=== PATIENT | female | born 1950 ===

== ENCOUNTER 2020-06-25 11:31 | Outpatient (REF) | payer MEDICARE, SELFPAY ==
[2020-06-25 12:08] LABS: MANUAL DIFF FLAG NO
[2020-06-25 12:11] LABS: Basophils Absolute Auto 0.1 X10*3/uL (0.0-0.2); Basophils Percent Auto 0.9 % (0-2); Eosinophils Absolute Auto 0.3 X10*3/uL (0.0-0.4); Eosinophils Percent Auto 3.8 % (0-4); Hematocrit 45.1 % (37-47); Hemoglobin 14.5 g/dl (12.0-16.0); Imm Gran Abs Auto 0.02 X10*3/uL (0.00-0.03); Imm Gran Pct Auto 0.3 % (0.0-0.4); Lymphocytes Absolute Auto 2.2 X10*3/uL (1.2-4.9); Lymphocytes Percent Auto 32.9 % (20-40); Mean Corpuscular HGB Conc 32.2 g/dl (31.0-35.0); Mean Corpuscular Hemoglobin 28.8 pg (27.0-33.0); Mean Corpuscular Volume 89.5 fL (80-98); Mean Platelet Volume 9.3 fL (9.4-12.3); Monocytes Absolute Auto 0.6 X10*3/uL (0.1-1.2); Neutrophils Absolute Auto 3.6 X10*3/uL (2.0-8.3); Neutrophils Percent Auto 53.1 % (45-73); Platelet Count 294 X10*3/uL (160-400); Red Blood Count 5.04 X10*6/uL (4.20-5.50); Red Cell Distribution Width 11.9 % (11.0-16.0); White Blood Count 6.8 X10*3/uL (4.8-10.8)
[2020-06-25 13:24] LABS: Thyroid Stimulating Hormone 0.59 uIU/mL (0.32-4.0)
[2020-06-25 13:45] LABS: Alanine Aminotransferase 37 U/L (0-31); Alkaline Phosphatase 120 U/L (39-117); Anion Gap 14 (12-20); Aspartate Amino Transferase 34 U/L (5-31); Bilirubin Total 1.1 mg/dL (0.0-1.0); Blood Urea Nitrogen 9 mg/dL (9-16); Calcium 9.2 mg/dL (8.4-10.2); Carbon Dioxide 28 mmol/L (22-29); Chloride 101 mmol/L (96-108); Cholesterol 208 mg/dL; Estimated Glomerular Filt Rate > 60; Glucose Random 115 mg/dL (60-115); HDL Cholesterol 82 mg/dL; LDL Cholesterol Calculated 106 mg/dl; Potassium 4.5 mmol/l (3.3-5.1); Sodium 138 mmol/L (135-145); Total Protein 7.7 g/dL (6.5-8.0); Triglycerides 102 mg/dL
== END 2020-06-25 11:32 | disposition home or self-care (01) ==
LOC: HO.LAB 11:31
PROVIDERS: PCP Internal Medicine; Visit Provider Internal Medicine
DX: E66.01 Morbid (severe) obesity due to excess calories (principal); I10 Essential (primary) hypertension; Z13.31 Encounter for screening for depression; Z00.00 Encounter for general adult medical examination without abnormal findings
CPT/HCPCS: 36415; 80053; 80061; 84443; 85025

== ENCOUNTER 2023-06-08 15:13 | Inpatient (IN) | payer MEDICARE, SELFPAY ==
--- NOTE | ~2023-06-08 | US_ITS ---
EXAMINATION: US EXTRACRANIAL CAROTID DUPLEX, BILATERAL CLINICAL INFORMATION: Possible stroke COMPARISON: None available. TECHNIQUE: Real-time ultrasound and Doppler techniques (integrating B-mode 2-D vascular images, Doppler spectral analysis and color-flow Doppler imaging) were utilized to interrogate the extracranial carotid arteries, the vertebral arteries and proximal subclavian arteries bilaterally. The degree of stenosis is determined by criteria similar to NASCET. FINDINGS: Right Side: 1. There is mild atherosclerotic plaque seen in the bifurcation/proximal ICA region. 2. The common carotid artery PSV proximally is 91 cm/s and distally 91 cm/s. 3. The proximal internal carotid artery velocities are 50 cm/s systolic and 17 cm/s diastolic. 4. The proximal external carotid artery PSV is 91 cm/s. 5. The vertebral artery shows antegrade flow. 6. The subclavian artery waveforms are normal. Left Side: 1. There is moderate atherosclerotic plaque seen in the bifurcation/proximal ICA region. 2. The common carotid artery PSV proximally is 104 cm/s and distally 114 cm/s. 3. The proximal internal carotid artery velocities are 131 cm/s systolic and 22 cm/s diastolic. 4. The proximal external carotid artery PSV is 168 cm/s. 5. The vertebral artery shows antegrade flow. 6. The subclavian artery waveforms are normal. US/US carotid duplex BI IMPRESSION: 1. RIGHT: Minimal, non-hemodynamically significant stenosis of the proximal right internal carotid artery corresponding to a 0-49% stenosis by velocity criteria. 2. LEFT: Moderate, hemodynamically significant stenosis of the proximal left internal carotid artery corresponding to a 50-79% stenosis by velocity criteria.
--- NOTE | ~2023-06-08 | MR_ITS ---
MRI OF THE BRAIN WITHOUT IV CONTRAST INDICATION: Likely stroke COMPARISON: CT head on 06/08/2023 TECHNIQUE: Multiplanar multisequence MR imaging of the brain was obtained without IV contrast. FINDINGS: Restricted diffusion involving the right basal ganglia and internal capsule anterior limb. No hemorrhagic conversion. Trace subarachnoid hemorrhage in the right frontal sulci. Sequelae of prior infarct in the left basal ganglia. Diffuse prominence of the sulci with associated mild ex vacuo dilation of the ventricles compatible with global cerebral atrophy. No midline shift or hydrocephalus. No acute extra-axial fluid collections. The osseous structures are unremarkable. The pituitary gland, pineal gland and remaining midline structures are unremarkable. No orbital pathology. Mucosal thickening of the paranasal sinuses. The mastoid air cells are clear. MR/MR head/brain wo con IMPRESSION: 1. Acute right basal ganglia infarct. No hemorrhagic conversion. 2. Trace subarachnoid hemorrhage in the right frontal sulci.
--- NOTE | ~2023-06-08 | CT_ITS ---
EXAMINATION: CT HEAD WITHOUT CONTRAST CLINICAL INFORMATION: Left-sided facial weakness COMPARISON: None available. TECHNIQUE: Contiguous axial imaging was performed from the skull base to vertex without intravenous administration of contrast. This CT examination was performed using dose optimization techniques as appropriate, variously including the following: *Automated exposure control *Adjustment of mA and/or kV according to patient size (this includes techniques or standardized protocols for targeted exams where dose is matched to indication/reason for exam; i.e. extremities or head) *Use of iterative reconstruction technique DLP: 613 mGy-cm FINDINGS: No evidence for hemorrhage. Cisterns appear unremarkable. There is a hypodensity in the right basal ganglia extending into the anterior limb of the right internal capsule, suspicious for an infarct. MR examination of the brain would be recommended. Mild atrophy noted. Otherwise, san/white matter differentiation is maintained. No appreciable extra-axial collections. The mastoids are well aerated. Skull base unremarkable. Calvarium intact. There is eccentric opacification of frontal and ethmoid sinuses. CT/CT head/brain wo IV con IMPRESSION: Hypodensity in the right basal ganglia extending into the anterior limb of the right internal capsule, suspicious for an infarct. MR brain examination would be recommended. No appreciable bleed or mass effect. Mild atrophy. Eccentric sinusitis. Discussed by telephone with Lotus Restrepo in the ER at 4:32 PM.
[2023-06-08 15:18] VITALS: BP 155/89; PULSE 91; RESP 18; TEMP 36.2; O2SAT 97; BMI 32.8
--- NOTE | 2023-06-08 15:22 | ED_ITS ---
HPI - Neuro Symptoms/Deficit General Chief Complaint: Neuro Symptoms/Deficit Stated Complaint: Stroke (?) Time Seen by Provider: 06/08/23 16:05 Source: patient, family, RN notes reviewed and old records reviewed Mode of arrival: ambulatory History of Present Illness HPI Narrative: 73-year-old female with no significant past medical history presenting to the ED complaining of left-sided facial droop, mild blurred vision and drooling x Thanksgiving evening. Denies headache, lightheadedness/dizziness, CP/SOB, nausea/vomiting, abdominal pain. Denies taking anticoagulation. Onset (ago): day(s) Related Data Home Medications Medication Instructions Recorded Confirmed No Known Home Meds 06/08/23 06/08/23 Allergies Allergy/AdvReac Type Severity Reaction Status Date / Time No Known Allergies Allergy Verified 06/08/23 15:18 [No Known Allergies*] Review of Systems 2 Review of Systems: Constitutional: No Fever, No Chills, No Fatigue, No Malaise ENT/Mouth: No Ear Pain, No Nasal Congestion, No sore throat, No Rhinorrhea, No Swallowing Difficulty Eyes: No Eye Pain, No Swelling, No Redness, No Foreign Body Cardiovascular: No Chest Pain, No SOB, No Edema, No Palpitations Respiratory: No Cough, No Sputum, No Dyspnea Gastrointestinal: No Nausea, No Vomiting, No Diarrhea, No Constipation, No Abdominal pain Musculoskeletal: No joint pain, No Myalgias, No Joint Swelling Skin: No Skin Lesions, No rash Neuro: +Weakness, No Numbness, No Paresthesias, No Loss of Consciousness, No Dizziness, No Headache Yes all other systems are reviewed and are negative Constitutional: Constitutional: Reports as per HPI Neurologic: Denies Abnormal speech present [facility] Past Medical History Attestation statement: The following information was validated with the patient. Source: old records reviewed Medical History (Updated 06/08/23 @ 19:58 by YUNG Chacon) HTN (hypertension) Social History Social History Alcohol intake: current Alcohol intake frequency: 0-2 drinks per day Alcohol type: beer Patient Tobacco Use Status: Never used Tobacco Smoked in Last 30 Days: No Use of substances other than those prescribed or required for medical reasons: No Advance Directives: No Nutrition Risks: No Nutritional Risk Physical Exam 2 Vital Signs: Vital Signs: Last Vital Signs Temp 97.8 F 06/08/23 22:29 Pulse 97 06/08/23 22:29 Resp 17 06/08/23 22:29 BP 163/75 H 06/08/23 22:29 Pulse Ox 95 06/08/23 22:29 O2 Del Method Room Air 06/08/23 22:29 BMI result Body Mass Index 32.8 Const: General: cooperative and no acute distress O rientation/consciousness: patient oriented x3 Limitations: no limitations HEENT: Head: Yes normal to inspection, Yes atraumatic, No Wright's sign and No raccoon eyes Ears: hearing grossly normal bilaterally General nose exam: N ormal external nose present Eyes: General: appearance normal, both eyes and all related structures P upils: Equal, round and reactive pupils present EOM: EOMs intact bilaterally Neck: Neck: Yes normal visual inspection and Yes no meningeal signs Resp: Effort & Inspection: normal respiratory effort and no respiratory distress Auscultation: clear to auscultation bilaterally Cardio: Rate: regular rate Heart sounds: S1 normal heart sound present and S2 normal heart sound present GI: Inspection: Yes normal to inspection Palpation (GI): Soft to palpation, nontender, no guarding and not rigid : General: Yes no CVA tenderness Back/Spine/Pelvis: Back: no CVA tenderness Skin: Rashes: no rashes Wounds: no wounds Neuro: Other: + left-sided facial droop noted General: patient oriented x3, tone normal, moves all extremities, no meningeal signs and no focal motor deficits Cranial nerves: Yes Equal, round and reactive pupils present Cognition (Neuro): normal cognition Speech: No Abnormal speech present Motor exam (neuro): 5/5 motor strength present throughout, Pronator motor function not present and no tremor noted Extrem: General: Yes normal to inspection Course Course Course Narrative: This is an RME: Additional HPI, ROS, PE not included below will be deferred to primary provider. This is a 73-year-old female presenting to the emergency department for left- sided facial droop since . Last known well was prior to . Patient reports some blurred vision her left eye there is positive left-sided facial droop, strength 5/5 in upper and lower extremities. Discussed case with attending physician and patient brought back to emergency room for further evaluation. Plan: Ct brain, labs -1656--no leukocytosis. chronically elevated AST/ALT. CT head/brain wo IV con IMPRESSION: Hypodensity in the right basal ganglia extending into the anterior limb of the right internal capsule, suspicious for an infarct. MR brain examination would be recommended. No appreciable bleed or mass effect. Mild atrophy. Eccentric sinusitis. Discussed by telephone with Lotus Restrepo in the ER at 4:32 PM. > plan to admit to the hospitalist Medications Administered Generic Name Dose Route Start Last Admin Trade Name Farhad PRN Reason Stop Dose Admin Aspirin 81 mg 06/08/23 19:10 06/08/23 19:46 Aspirin Enteric Coated 81 Mg Tablet. PO 81 mg DAILY [place] Administration Atorvastatin Calcium 40 mg 06/08/23 21:00 06/08/23 22:27 Atorvastatin Calcium 40 Mg Tablet PO 40 mg BEDTIME [place] Administration Enoxaparin Sodium 40 mg 06/08/23 19:15 06/08/23 19:46 Enoxaparin Sodium 40 Mg/0.4 Ml Syringe SUBCUT 40 mg Q24H [place] Administration Medical Decision Making Medical Decision Making [facility] Narrative: 73-year-old female with no significant past medical history presenting to the ED complaining of left-sided facial droop, mild blurred vision and drooling x Thanksgiving evening. On exam vital signs stable, NAD, nontoxic appearing, physical exam with left-sided facial droop appreciated. No other deficits noted/weakness. Concern for subacute CVA. Rule out metabolic abnormalities/infectious etiology Plan: EKG, labs, UA, head CT Please refer to course for remaining clinical decision making, interpretation of labs/imaging results, and discussions with consultants and/or family members. Differential Diagnosis Differential Diagnoses: The differential diagnosis associated with the presentation includes As above Admission/Observation Consideration of admission/observation: Escalation of care including admission/observation considered Consult Healthcare Provider Management of the patient was discussed with: Hospitalist Lab Data [facility] Lab Attestation statement: I reviewed the patient's lab results. 06/08/23 16:01 06/08/23 16:01 Labs: Lab Results 06/08/23 Range/Units 16:01 WBC 6.2 (4.8-10.8) X10*3/uL RBC 5.09 (4.20-5.50) X10*6/uL Hgb 15.1 (12.0-16.0) g/dl Hct 46.2 (37.0-47.0) % MCV 90.8 (80.0-98.0) fL MCH 29.7 (27.0-33.0) pg MCHC 32.7 (31.0-35.0) g/dl RDW 12.4 (11.0-16.0) % Plt Count 225 (160-400) X10*3/uL MPV 9.7 (9.4-12.3) fL Immature Gran % (Auto) 0.2 (0.0-0.4) % Neut % (Auto) 31.7 L (45-73) % Lymph % (Auto) 53.0 H (20-40) % [place] % (Auto) 10.4 (2-11) % Eos % (Auto) 3.7 (0-4) % Baso % (Auto) 1.0 (0-2) % Lymph # (Auto) 3.3 (1.2-4.9) X10*3/uL [place] # (Auto) 0.6 (0.1-1.2) X10*3/uL Eos # (Auto) 0.2 (0.0-0.4) X10*3/uL Baso # (Auto) 0.1 (0.0-0.2) X10*3/uL Abs Immat Gran (auto) 0.01 (0.00-0.03) X10*3/uL Absolute Neuts (auto) 2.0 (2.0-8.3) x10*3/uL Absolute Nucleated RBC 0.000 (0.0-0.012) X10*3/uL Nucleated RBC % (auto) 0.0 (0.0-0.2) /100WBC PT 10.9 L (11.1-13.3) SEC INR 0.9 (0.9-1.1) APTT 30.7 (26.0-36.4) SEC Sodium 141 (135-145) mmol/L Potassium 3.9 (3.3-5.1) mmol/L Chloride 107 (96-108) mmol/L Carbon Dioxide 22 (22-29) mmol/L Anion Gap 16 (12-20) BUN 7 L (9-16) mg/dL Creatinine 0.62 (0.5-1.4) mg/dL Estim Creat Clear Calc 69.6 Estimated GFR > 60 Random Glucose 96 (60-115) mg/dL Calcium 9.5 (8.4-10.2) mg/dL Magnesium 2.1 (1.6-2.6) mg/dL Total Bilirubin 0.4 (0.0-1.0) mg/dL Direct Bilirubin 0.2 (0.0-0.5) mg/dL AST 45 H (5-31) U/L ALT 35 H (0-31) U/L Alkaline Phosphatase 107 (39-117) U/L Total Protein 7.9 (6.5-8.0) g/dL Albumin 4.1 (3.5-5.0) g/dL Independent Interpretation I performed an independent interpretation of an: EKG Radiology Impression Discussion of test interpretation with radiology: I have reviewed the radiologist's reading. External Record Review External record reviewed: Inpatient record, Office record, Outpatient record, Prior outpatient labs, Prior outpatient radiology, Primary care record and Outside ED record Tests considered The following testing was considered but not selected: As above NIH Stroke Scale Internal: Initial- Upon Arrival Level of Consciousness: Alert Level of Consciousness Questions: Answers both questions correctly Level of Consciousness Commands: Performs both tasks correctly Best Gaze: Normal Visual: No visual loss Facial Palsy: Partial paralysis Motor Arm (Right): No drift Motor Arm (Left): No drift Motor Leg (Right): No drift Motor Leg (Left): No drift Limb Ataxia: Absent Sensory: Normal Best Language: No aphasia Dysarthia: Normal Extinction and Inattention: No abnormality Score: 2 Critical Care Time Critical Care Time Critical Care Time: Yes Total Critical Care Time: 40 Attestation: I have personally provided critical care time exclusive of time spent on separately billable procedures. Time includes review of lab data, radiology results, discussion with consultants, and monitoring for potential decompensation. Intervention performed as documented. Discharge Plan Discharge Clinical Impression: Cerebrovascular accident Patient Disposition: Admitted As Inpatient
--- NOTE | 2023-06-08 16:06 | PC.NURSE ---
IV established on patient, patient tolerated well. Labwork obtained.
[2023-06-08 16:07] LABS: MANUAL DIFF FLAG NO
[2023-06-08 16:11] LABS: Basophils Absolute Auto 0.1 X10*3/uL (0.0-0.2); Eosinophils Absolute Auto 0.2 X10*3/uL (0.0-0.4); Eosinophils Percent Auto 3.7 % (0-4); Hematocrit 46.2 % (37.0-47.0); Hemoglobin 15.1 g/dl (12.0-16.0); Imm Gran Abs Auto 0.01 X10*3/uL (0.00-0.03); Imm Gran Pct Auto 0.2 % (0.0-0.4); Lymphocytes Absolute Auto 3.3 X10*3/uL (1.2-4.9); Mean Corpuscular HGB Conc 32.7 g/dl (31.0-35.0); Mean Corpuscular Hemoglobin 29.7 pg (27.0-33.0); Mean Corpuscular Volume 90.8 fL (80.0-98.0); Mean Platelet Volume 9.7 fL (9.4-12.3); Monocytes Absolute Auto 0.6 X10*3/uL (0.1-1.2); Monocytes Percent Auto 10.4 % (2-11); Neutrophils Percent Auto 31.7 % (45-73); Platelet Count 225 X10*3/uL (160-400); Red Blood Count 5.09 X10*6/uL (4.20-5.50); Red Cell Distribution Width 12.4 % (11.0-16.0); White Blood Count 6.2 X10*3/uL (4.8-10.8)
[2023-06-08 16:17] LABS: INTERNATIONAL NORM RATIO 0.9 (0.9-1.1); Prothrombin Time 10.9 SEC (11.1-13.3)
[2023-06-08 16:19] LABS: Partial Thromboplastin Time 30.7 SEC (26.0-36.4)
[2023-06-08 16:27] LABS: Alanine Aminotransferase 35 U/L (0-31); Albumin Level 4.1 g/dL (3.5-5.0); Alkaline Phosphatase 107 U/L (39-117); Anion Gap 16 (12-20); Aspartate Amino Transferase 45 U/L (5-31); Bilirubin Direct 0.2 mg/dL (0.0-0.5); Bilirubin Total 0.4 mg/dL (0.0-1.0); Blood Urea Nitrogen 7 mg/dL (9-16); Calcium 9.5 mg/dL (8.4-10.2); Carbon Dioxide 22 mmol/L (22-29); Chloride 107 mmol/L (96-108); Creatinine Clr Calc Pharmacy 69.6; Estimated Glomerular Filt Rate > 60; Glucose Random 96 mg/dL (60-115); Magnesium 2.1 mg/dL (1.6-2.6); Potassium 3.9 mmol/L (3.3-5.1); Sodium 141 mmol/L (135-145); Total Protein 7.9 g/dL (6.5-8.0)
--- NOTE | 2023-06-08 16:35 | ECG_ITS ---
Test Reason : NEURO SYMPTOMS Blood Pressure : / mmHG Vent. Rate : 076 BPM Atrial Rate : 076 BPM P-R Int : 160 ms QRS Dur : 080 ms QT Int : 400 ms P-R-T Axes : 032 -15 005 degrees QTc Int : 450 ms Normal sinus rhythm Nonspecific T wave abnormality Abnormal ECG When compared with ECG of 08-MAY-2014 09:42, Nonspecific T wave abnormality now evident in Anterior leads Referred By: Geno Kam Electronically Signed By:ADDISON AYON MD
--- NOTE | 2023-06-08 18:02 | P.HPHOSP_ITS ---
History of Present Illness Date of Service: 06/08/23 Attending physician on admission: Yaneli Salinas Chief Complaint: Left-sided facial droop, blurry vision Pt is a 73-year-old female with a PMH significant for?HTN who is not on any home meds and who does not follow closely wiht PCP who presents to the ED with?left- sided facial droop, slurring words, and right-sided heaviness since . Last known well time was the night of 06/01 when pt says she went to bed in her normal state of health. Pt awoke on morning with a heaviness and achiness in right arm and leg, and also that her right hand was clenched. Patient was eventually able to move her hand freely with no noticeable deficit. Patient was also able to cook starch that afternoon, the family noted at dinner she had a slight left-sided facial droop. Did not note any slurring of words at that time. Neither patient or family apparently thought much about her condition and did not consider coming to the ED for evaluation. Patient went to bed that evening but will get 02:00 on Tuesday morning again with a heaviness/achiness in her right arm and leg. Patient also states she became incontinent of urine on , Tuesday, Tuesday, though has been continent since Tuesday. Patient denies any headache or acute vision changes. However patient and her family noticed she began slurring her words yesterday. Today when family visited they noticed the left-sided facial droop had worsened and patient was drooling from the left side of her mouth, which prompted visit to the ED. no reported family history of stroke. Patient states her only known medical condition is high blood pressure, the patient has not seen a PCP since some time before the pandemic. Patient denies chest pain/pressure, palpitations. No shortness of breath or difficulty breathing. No lightheadedness or dizziness. Currently denies any numbness, tingling, weakness, paralysis on her left side. In the ED pt was afebrile, with pulse of 91, respiratory rate 18, slightly hypertensive 155/89, satting 97% on RA. Labs were significant for chronic mild transaminitis with AST 45, ALT 30, otherwise grossly unremarkable. No leukocytosis. Stable H&H. Electrolytes WNL. Renal function WNL. CT of head/brain found hypodensity in the right basal ganglia extending into the anterior limb of the right internal capsule, suspicious for an infract. Recommend MRI. EKG demonstrated normal sinus with nonspecific T-wave inversions in aVR and V1. Pt will be admitted to the hospital for treatment and further evaluation of likely subacute CVA. Review of Systems 2 Review of Systems: Left-sided facial droop Slurring of words Right-sided heaviness/achiness in arm and leg Denies headache, acute vision changes No lightheadedness or dizziness Denies chest pain/pressure, palpitations No shortness of breath [facility] Medical History (Updated 06/09/23 @ 13:10 by Pilar Fox MD) HTN (hypertension) Social History Household Members: None Housing: Apartment Do you presently have visiting nurse or other home services: Yes ( a nurse once a year around october ) Alcohol intake: current Alcohol intake frequency: 0-2 drinks per day Alcohol type: beer Comment: pt's daughter present at bedside, aware of bed alarm and high falls measure Patient Tobacco Use Status: Current someday Tobacco user Tobacco use type: Cigarette Smoked in Last 30 Days: Yes e-Cigarette/Vaping Use: Never Used Patient Interested in Nicotine Replacement: No Use of substances other than those prescribed or required for medical reasons: Yes Substance Use Type: Marijuana Substance Use Frequency: Monthly Last Used Substance: Days (ago) Last Used Substance Other:: Thanksgiving Currently Displaying Signs/Symptoms of Drug Intoxication Withdrawal: No Any prior treatment program specific to substance use: No Have you been hit, kicked, punched, or otherwise hurt by someone within the past year? If so, by whom?: No Do you feel safe in your current relationship?: No Current Relationship Is there a partner from a previous relationship who is making you feel unsafe now?: No Are you made to feel afraid or neglected: No [employer] [facility] Practices: [employer] Advance Directives: No Do you have thoughts of harming others: None Do you have a plan to hurt others: No Plan Recently lost weight without trying: Yes How much weight loss: 2-13 pounds Eating poorly because of decreased appetite: Yes Nutrition screen score: 4 Nutrition Risks: Poor intake 0-25% >4 days Patient : No : No Poor oral hygiene: Yes (upper and lowers, only has uppers here) service: No Meds Allergies Allergy/AdvReac Type Severity Reaction Status Date / Time No Known Allergies Allergy Verified 06/08/23 15:18 [No Known Allergies*] Home Medications Medication Instructions Recorded Confirmed Last Taken Type No Known Home Meds 06/08/23 06/08/23 Unknown History Physical Exam 2 Vital Signs and Narrative: Vital Signs: Last Vital Signs Temp 97.2 F 06/08/23 15:18 Pulse 91 06/08/23 15:18 Resp 18 06/08/23 15:18 BP 155/89 H 06/08/23 15:18 Pulse Ox 97 06/08/23 15:18 O2 Del Method Room Air 06/08/23 15:18 BMI result Body Mass Index 32.8 Constitutional: Alert, in no acute distress. Mental Status: Oriented to person, place and time. Eyes: Pupils are equal, round, and reactive to light. Ear, Nose, and Throat: Oropharynx clear, mucous membranes moist. Ears and nose without deformities. Trachea midline. Respiratory: Clear to auscultation bilaterally. No wheezing, rales, or rhonchi. Cardiovascular: S1, S2, tachy. No murmurs, rubs, or gallops. Gastrointestinal: Abdomen soft, non-tender, non-distended. Normal bowel sounds. Neurologic: Cranial nerves II-XII are grossly intact bilaterally. Moves all extremities spontaneously. Left-sided facial droop noted. Some slurring of words though no difficulty with word-finding. Preserved 5/5 strength of upper and lower extremities bilaterally. Sensation to light touch intact of face, upper and lower extremities bilaterally. Skin: Warm, dry. Musculoskeletal: No cyanosis or clubbing. Extremities: No edema. Psychiatric: Normal mood and affect. Results Labs 06/08/23 16:01 06/08/23 16:01 Labs: Laboratory Results - last 24 hr 06/08/23 16:01 MCV 90.8 MCH 29.7 MCHC 32.7 RDW 12.4 Plt Count 225 MPV 9.7 Immature Gran % (Auto) 0.2 Neut % (Auto) 31.7 L Lymph % (Auto) 53.0 H [place] % (Auto) 10.4 Eos % (Auto) 3.7 Baso % (Auto) 1.0 Lymph # (Auto) 3.3 [place] # (Auto) 0.6 Eos # (Auto) 0.2 Baso # (Auto) 0.1 Abs Immat Gran (auto) 0.01 Absolute Neuts (auto) 2.0 Absolute Nucleated RBC 0.000 Nucleated RBC % (auto) 0.0 PT 10.9 L INR 0.9 APTT 30.7 Anion Gap 16 Estim Creat Clear Calc 69.6 Estimated GFR > 60 Random Glucose 96 Calcium 9.5 Magnesium 2.1 Total Bilirubin 0.4 Direct Bilirubin 0.2 AST 45 H ALT 35 H Alkaline Phosphatase 107 Total Protein 7.9 Albumin 4.1 Imaging Radiologist's Impressions: Impressions Head CT 06/08/23 15:34 IMPRESSION: Hypodensity in the right basal ganglia extending into the anterior limb of the right internal capsule, suspicious for an infarct. MR brain examination would be recommended. No appreciable bleed or mass effect. Mild atrophy. Eccentric sinusitis. Discussed by telephone with Lotus Restrepo in the ER at 4:32 PM. Assessment and Plan (1) Cerebrovascular accident: Status: Acute Plan Pt is a 73-year-old female with a PMH significant for?HTN who is not on any home meds and who does not follow closely wiht PCP who presents to the ED with?left- sided facial droop, slurring words, and right-sided heaviness since . Pt will be admitted to the hospital for treatment and further evaluation of likely subacute CVA. Subacute CVA Pt reports left-sided facial droop, slurring of words, right-sided leg and arm achiness since CT of head/brain positive for hypodensity in the right basal ganglia suspicious for an infarct Will start on atorvastatin 40mg daily, aspirin 81 mg daily MRI of brain Carotid ultrasound Echocardiogram Lipid profile, A1C PT/OT and speech evaluation Neurology consult Cardiac diet Monitor on telemetry Alcohol dependence Pt reports drinking around 6 beers daily No reported hx of alcohol withdrawal Labs reveal mild transaminitis CIWA scale HTN Pt with reproted hx of HTN but not on any home meds Pt has been hypertensive up to 155/89 Will hold on initiating any anti-hypertensives for now and will monitor BP Full Code Attending:?Dr. Salinas DVT Prophylaxis: Lovenox Pt will require a hospitalization of at least two nights for treatment of?likely subacute CVA. Patient required additional imaging/workup, close monitoring, and specialist consultation. Quality Stroke Does the patient have a stroke diagnosis?: Yes Reason for No Anti-thrombotic by Day Two: Contraindicated (Outside of tNK therapeutic window; last known well time 7 days ago) VTE Prior VTE?: No VTE Risk Level:: Medical - moderate - high VTE Device Contraindication: Treatment Not Indicated VTE Drug Contraindication: N/A - Med Ordered
[2023-06-08] MEDS: Enoxaparin Sodium 40 MG/0.4 ML SYRINGE SUBCUT (19:46)
[2023-06-08] MEDS: Aspirin Enteric Coated 81 MG TABLET.DR PO (19:46)
--- NOTE | 2023-06-08 20:56 | PHA.MEDREC ---
Pharmacy Consult ? Medication Reconciliation Pharmacy has completed the medication reconciliation.
[2023-06-08] MEDS: Atorvastatin Calcium 40 MG TABLET PO (22:27)
[2023-06-08 22:29] VITALS: BP 163/75; PULSE 97; RESP 17; TEMP 36.6; O2SAT 95
[2023-06-08] MEDS: 0.9 % Sodium Chloride Flush 3 ML SYRINGE IVFLUSH (23:40)
[2023-06-08 23:41] VITALS: BMI 32.7
[2023-06-08 23:49] VITALS: BP 150/76; PULSE 99; RESP 16; TEMP 37.1; O2SAT 95
[2023-06-09 04:00] VITALS: BP 174/98; PULSE 80; RESP 19; TEMP 36.2; O2SAT 91
[2023-06-09 04:35] LABS: Appearance Urine Clear; Color Urine Orange; Glucose Urine UA Negative (Negative); Leukocyte Esterase Urine Moderate (2+) (Negative); Nitrite Urine Negative (Negative); UMIC TRIGGER UACC YES; Urine Blood Small (1+) (Negative); Urine Ketones Trace mg/dL (Negative); Urine Protein Negative (Neg-Trace)
[2023-06-09 04:42] LABS: Bacteria Urine None Seen (None Seen); Hyaline Casts Urine 0-2 /LPF (0-2); Squamous Epithelial Cell Urine 0-2 /HPF (0-2); UACC Culture Trigger YES
--- NOTE | 2023-06-09 05:03 | PC.NURSE ---
Patient admitted to [facility] from ED at ~2335. Pt is A&Ox4. On q2h neuro assessments for likely stroke on . See details neuro and admission physical assessments for full assessment details. Pt is also on q4h CIWA, assessments scoring zero at this time. Pt reports she drinks a six-pack of beers daily, with her last being a single beer just prior to coming into the ED this visit. Seizure and aspiration precautions in place. Pt's daughter is present at the bedside overnight. Pt reports poor po intake at baseline which daughter confirms stating she eats like a bird . Pt denies using po supplements at home. Denies n/v. Denies chest pain and sob. Breathing is even and unlabored without distress on RA. Voids cyu in bathroom with standby assist. 0400 BP high 174/98 manually with HR 80. Pt asymptomatic and denies pain. Covering Dr. Julien notified, no plans to treat at this time. Pt appears comfortable resting in bed at this time on hourly rounding. U/A sent as previously ordered. notified of results. Will continue to monitor pt for remainder of marketing copywriter' scheduled shift.
--- NOTE | 2023-06-09 07:00 | CA_ITS ---
Transthoracic Echocardiogram Patient (Last, First, Middle): Shellie Gore, Gender: Female Date of : 1950 Age: 73 Procedure Date: 06/09/2023 Procedure Type: Transthoracic Echocardiogram Location: [facility] [place] Height: 149.86 cm Weight: 73.03 kg BSA: 1.68 m2 Heart Rate: bpm BP: 149 / 81 mmHg Uniform Maker: STU Referring MD: Freya BARRAGAN First Sampler: Chapo Rashid MD Symptoms: Likely stroke Study Quality: Adequate ECG Rhythm: Sinus Conclusions: - 1. Normal LV ejection fraction of 60 65% 2. Mild mitral calcification with normal cardiac valvular Doppler 3. No gross pericardial effusion Findings Left Ventricle Normal left ventricular size, thickness, and systolic function. The visually estimated ejection fraction is between 60-65%. Spectral Doppler is indicative of an impaired relaxation filling pattern. Wall Motion Rest Echo Findings The basal inferior segment is hypokinetic. All other scored wall segments showed normal motion. Right Ventricle Normal right ventricular cavity size and systolic function. Atria The left atrium is likely dilated. There is lipomatous hypertrophy of the interatrial septum. There is no evidence of interatrial shunt. The right atrium is normal in size. Aortic Valve Normal aortic valve structure and function. There is no aortic valve stenosis. There is no aortic valve regurgitation. Mitral Valve There is mild anterior and moderate posterior mitral leaflet thickening. There is mild mitral annular calcification. There is mild mitral valve regurgitation. There is no mitral valve stenosis. Pulmonic Valve The pulmonic valve is likely normal. Tricuspid Valve Likely normal tricuspid valve structure and function. Tricuspid regurgitation envelope is inadequate for calculation of right ventricular systolic pressure. Normal right atrial pressure. Great Vessels The pulmonary artery was not well visualized. There is no dilatation of the ascending aorta measuring 3.10 cm. Venous The inferior vena cava is mildly dilated and collapses greater than 50% with inspiration. Pericardium/Pleural There is no evidence of pericardial effusion. Prior Study Comparison No significant change compared to prior study dated: 10/27/2018. Measurements 2D Linear Measurements IVSd: 0.93 0.6-0.9/0.6-1.0 cm LVIDd: 5.42 3.9-5.3/4.2-5.9 cm LVIDd Index: 3.23 2.4-3.2/2.2-3.1 cm/m2 LVIDs: 3.41 2.0-3.6 cm LVPWd: 0.95 0.7-1.1 cm LA Diam: 4.60 2.7-3.8/3.0-4.0 cm LAIDs Index: 2.74 1.5-2.3 cm/m2 LV Mass: 604.77 67-162/88-224 g LV Mass Index: 359.98 43-95/49-115 g/m2 LVOT Diam: 1.90 3.0+(-)1.3 cm Mitral Valve MV Pk E: 0.60 MV PK A: 1.01 MV Decel Time: 168.00 E/A: 0.60 E'Lateral: 4.79 E'Medial: 4.13 E/E' Med: 14.60 E/E' Lat: 12.60 PHT: 49.00 MVA PHT: 4.49 Decel Henderson: 3.60 Aortic Valve AoV Pk Josue: 1.36 AoV Pk Grad: 7.00 RAYMON: 2.22 LVOT LVOT Pk Josue: 1.05 LVOT Mn Josue: 0.75 LVOT VTI: 0.22 LVOT Pk Grad: 4.00 LVOT Mn Grad: 3.00 LVOT Diam: 1.90 LVOT Area: 2.84 Diastolic Function MV Pk E: 0.60 MV Pk A: 1.01 E/A: 0.60 E'Medial: 4.13 E/E' Med: 14.60 E' Laterial: 4.79 E/E' Lat: 12.60 Right Ventricle TVS' Josue: 14.30 Tricuspid Valve TR Pk Josue: 1.94 TR Pk Grad: 15.00 RA Press: 8.00 Great Vessels Aorta Sinus of Valsalva: 2.80 2.0-3.5 cm Ao Asc: 3.10 2.1-3.4 cm Pulmonary Veins Pulm Vein S/D 2.10 Pulmonary Valve PV Pk Josue: 0.69 Peak PV Grad: 2.00 Updated in Other Vendor System with Status of Final Chapo Rashid MD electronically signed on 06/09/2023 4:39:20 PM with status of Final
[2023-06-09 07:21] VITALS: BP 149/81; PULSE 80; RESP 18; TEMP 36.7; O2SAT 94
[2023-06-09 07:53] LABS: Cholesterol 172 mg/dL (<200); Estimated Average Glucose 97 mg/dL; HDL Cholesterol 71 mg/dL (>40); LDL Cholesterol Calculated 84 mg/dL (<100); Triglycerides 87 mg/dL (<150)
[2023-06-09] MEDS: 0.9 % Sodium Chloride Flush 3 ML SYRINGE IVFLUSH (08:30)
[2023-06-09] MEDS: Aspirin Enteric Coated 81 MG TABLET.DR PO (08:30)
--- NOTE | 2023-06-09 09:36 | MHC.CM.PN ---
IMM 06/09. Pt lives at home alone, self-care. Returning home is the goal. Pts daughter will transport her home. HCP completed with pt, now on file. Pt does not have a PCP, per pt [facility] assigned her to see Dr. Dewitt but he is not accepting new pts at this time. Pt will be calling back [employer] to follow up on this.
[2023-06-09 11:37] VITALS: BP 149/87; PULSE 64; RESP 18; TEMP 37.1; O2SAT 96
--- NOTE | 2023-06-09 13:07 | P.CNNE_ITS ---
History of Present Illness Data of Consult Service Date: 06/09/23 Primary Care Provider: Unknown Physician HPI Reason for consult: Stroke 73 years old woman who was brought to hospital with new onset of facial asymmetry. Her daughter noted that when she saw her mother after few days. Onset of this was unclear and patient herself was not aware of this. There was no complaint of any dizziness or headache or any obvious focal weakness otherwise. There was no complaint of any cardiac symptom. Review of Systems 2 Review of Systems: No recent trauma or headache. [facility] Past Medical History Medical History (Updated 06/09/23 @ 13:10 by Pilar Fox MD) HTN (hypertension) Social History Social History Household Members: None Housing: Apartment Do you presently have visiting nurse or other home services: Yes ( a nurse once a year around october ) Alcohol intake: current Alcohol intake frequency: 0-2 drinks per day Alcohol type: beer Comment: pt's daughter present at bedside, aware of bed alarm and high falls measure Patient Tobacco Use Status: Current someday Tobacco user Tobacco use type: Cigarette Smoked in Last 30 Days: Yes e-Cigarette/Vaping Use: Never Used Patient Interested in Nicotine Replacement: No Use of substances other than those prescribed or required for medical reasons: Yes Substance Use Type: Marijuana Substance Use Frequency: Monthly Last Used Substance: Days (ago) Last Used Substance Other:: Thanksgiving Currently Displaying Signs/Symptoms of Drug Intoxication Withdrawal: No Any prior treatment program specific to substance use: No Have you been hit, kicked, punched, or otherwise hurt by someone within the past year? If so, by whom?: No Do you feel safe in your current relationship?: No Current Relationship Is there a partner from a previous relationship who is making you feel unsafe now?: No Are you made to feel afraid or neglected: No Mandaeism Healthcare Practices: Yazidi Advance Directives: No Do you have thoughts of harming others: None Do you have a plan to hurt others: No Plan Recently lost weight without trying: Yes How much weight loss: 2-13 pounds Eating poorly because of decreased appetite: Yes Nutrition screen score: 4 Nutrition Risks: Poor intake 0-25% >4 days Patient : No : No Poor oral hygiene: Yes (upper and lowers, only has uppers here) [email or web address] service: No Meds Allergies Allergy/AdvReac Type Severity Reaction Status Date / Time No Known Allergies Allergy Verified 06/08/23 15:18 [No Known Allergies*] Active Medications: Current Medications Acetaminophen (Acetaminophen 325 Mg Tablet) 650 mg PO Q6H PRN PRN Reason: Pain, Mild (Pain Scale 1-3) Aspirin (Aspirin Enteric Coated 81 Mg Tablet.) 81 mg PO DAILY [facility] Last Admin: 06/09/23 08:30 Dose: 81 mg Atorvastatin Calcium (Atorvastatin Calcium 40 Mg Tablet) 40 mg PO BEDTIME [facility] Last Admin: 06/08/23 22:27 Dose: 40 mg Benzonatate (Benzonatate 100 Mg Capsule) 100 mg PO TID PRN PRN Reason: Cough Docusate Sodium (Docusate Sodium 100 Mg Capsule) 100 mg PO DAILY PRN PRN Reason: Constipation Enoxaparin Sodium (Enoxaparin Sodium 40 Mg/0.4 Ml Syringe) 40 mg SUBCUT Q24H [facility] Last Admin: 06/08/23 19:46 Dose: 40 mg Melatonin (Melatonin 3 Mg Tablet) 6 mg PO BEDTIME PRN PRN Reason: Insomnia Ondansetron HCl (Ondansetron Hcl 4 Mg/2 Ml Vial) 4 mg IVPUSH Q8H PRN PRN Reason: Nausea and Vomiting Sodium Chloride (0.9 % Sodium Chloride Flush 3 Ml Syringe) 3 ml IVFLUSH QSHIFT [facility] Last Admin: 06/09/23 08:30 Dose: 3 ml Home Medications Medication Instructions Recorded Confirmed Last Taken Type No Known Home Meds 06/08/23 06/08/23 Unknown History Physical Exam 2 Vital Signs: Vital Signs: Last Vital Signs Temp 98.8 F 06/09/23 11:37 Pulse 64 06/09/23 11:37 Resp 18 06/09/23 11:37 BP 149/87 H 06/09/23 11:37 Pulse Ox 96 06/09/23 11:37 O2 Del Method Room Air 06/09/23 11:37 BMI result Body Mass Index 32.7 Neuro: Other: She is alert and awake with normal spontaneity of speech fluency comprehension and affect. There is mild left-sided facial central type of weakness. Visual guy are full. Results Labs 06/08/23 16:01 06/08/23 16:01 Labs: Short CBC 06/08/23 Range/Units 16:01 WBC 6.2 (4.8-10.8) X10*3/uL Hgb 15.1 (12.0-16.0) g/dl Hct 46.2 (37.0-47.0) % Plt Count 225 (160-400) X10*3/uL BMP 06/08/23 16:01 Sodium 141 Potassium 3.9 Chloride 107 Carbon Dioxide 22 BUN 7 L Creatinine 0.62 Calcium 9.5 Liver Function 06/08/23 Range/Units 16:01 Total Bilirubin 0.4 (0.0-1.0) mg/dL Direct Bilirubin 0.2 (0.0-0.5) mg/dL AST 45 H (5-31) U/L ALT 35 H (0-31) U/L Alkaline Phosphatase 107 (39-117) U/L Albumin 4.1 (3.5-5.0) g/dL Urine 06/09/23 Range/Units 03:37 Urine Color [place] A Urine Appearance Clear Urine pH 5.0 (5.0-9.0) Ur Specific [place] 1.020 (1.005-1.025) Urine Protein Negative (Neg-Trace) mg/dL Urine Glucose (UA) Negative (Negative) mg/dL Her noncontrast head CT revealed a moderate size right basal ganglia area subacute infarct. MRI of brain confirm that infarct. Carotid ultrasound did not reveal any intracranial stenosis right-sided carotid stenosis. Moderate left ICA stenosis was noted. Assessment and Plan (1) Cerebral infarction: Qualifiers: Cerebral infarction mechanism: thrombosis Precerebral and cerebral artery: unspecified cerebral artery Qualified Code(s): I63.30 - Cerebral infarction due to thrombosis of unspecified cerebral artery Status: Acute 73 years old woman with subacute right basal ganglia area infarct likely related to atherothrombotic disease associated with hypertension. Mainstay of management is PT OT, anti-platelet agent, blood pressure control and statin. Procedures Date of Service Date of Service: 06/09/23
--- NOTE | 2023-06-09 14:53 | HO.PM.IMPN ---
Subjective Subjective Date of Service: 06/09/23 Interval History: Acute right basal ganglia infarct. Review of Systems denies any new c/o has fcial drop same as yesterday. Physical Exam Vital Signs: Vital Signs: Last Vital Signs Temp 98.8 F 06/09/23 11:37 Pulse 64 06/09/23 11:37 Resp 18 06/09/23 11:37 BP 149/87 H 06/09/23 11:37 Pulse Ox 96 06/09/23 11:37 O2 Del Method Room Air 06/09/23 11:37 BMI result Body Mass Index 32.7 Appearance: Alert.? Oriented X3.? cvs: [id number], [id number] , no murmur res: clear to auscultation ,no rhonchii or wheezing abd: no rebound or guarding ,nt, bs present. ext pulses present , no cyanosis. neuro: axo3 , nonfocal. Objective Data Active Medications Acetaminophen (Acetaminophen 325 Mg Tablet) 650 mg PO Q6H PRN PRN Reason: Pain, Mild (Pain Scale 1-3) Aspirin (Aspirin Enteric Coated 81 Mg Tablet.) 81 mg PO DAILY [facility] Last Admin: 06/09/23 08:30 Dose: 81 mg Documented By: SANTOSH Atorvastatin Calcium (Atorvastatin Calcium 40 Mg Tablet) 40 mg PO BEDTIME [facility] Last Admin: 06/08/23 22:27 Dose: 40 mg Documented By: TIO Benzonatate (Benzonatate 100 Mg Capsule) 100 mg PO TID PRN PRN Reason: Cough Docusate Sodium (Docusate Sodium 100 Mg Capsule) 100 mg PO DAILY PRN PRN Reason: Constipation Enoxaparin Sodium (Enoxaparin Sodium 40 Mg/0.4 Ml Syringe) 40 mg SUBCUT Q24H [facility] Last Admin: 06/08/23 19:46 Dose: 40 mg Documented By: TIO Melatonin (Melatonin 3 Mg Tablet) 6 mg PO BEDTIME PRN PRN Reason: Insomnia Ondansetron HCl (Ondansetron Hcl 4 Mg/2 Ml Vial) 4 mg IVPUSH Q8H PRN PRN Reason: Nausea and Vomiting Sodium Chloride (0.9 % Sodium Chloride Flush 3 Ml Syringe) 3 ml IVFLUSH QSHIFT [facility] Last Admin: 06/09/23 08:30 Dose: 3 ml Documented By: SANTOSH Labs 06/08/23 16:01 06/08/23 16:01 Labs: Laboratory Results - last 24 hr 06/08/23 06/09/23 06/09/23 16:01 03:37 06:57 MCV 90.8 MCH 29.7 MCHC 32.7 RDW 12.4 Plt Count 225 MPV 9.7 Immature Gran % (Auto) 0.2 Neut % (Auto) 31.7 L Lymph % (Auto) 53.0 H [place] % (Auto) 10.4 Eos % (Auto) 3.7 Baso % (Auto) 1.0 Lymph # (Auto) 3.3 [place] # (Auto) 0.6 Eos # (Auto) 0.2 Baso # (Auto) 0.1 Abs Immat Gran (auto) 0.01 Absolute Neuts (auto) 2.0 Absolute Nucleated RBC 0.000 Nucleated RBC % (auto) 0.0 PT 10.9 L INR 0.9 APTT 30.7 Anion Gap 16 Estim Creat Clear Calc 69.6 Estimated GFR > 60 Random Glucose 96 Estimat Average Glucose 97 Hemoglobin A1c % 5.0 Calcium 9.5 Magnesium 2.1 Total Bilirubin 0.4 Direct Bilirubin 0.2 AST 45 H ALT 35 H Alkaline Phosphatase 107 Total Protein 7.9 Albumin 4.1 Triglycerides 87 Cholesterol 172 LDL Cholesterol, Calc 84 HDL Cholesterol 71 Urine Color [place] A Urine Appearance Clear Urine pH 5.0 Ur Specific [place] 1.020 Urine Protein Negative Urine Glucose (UA) Negative Urine Ketones Trace Urine Blood Small (1+) H Urine Nitrite Negative Ur Leukocyte Esterase Moderate (2+) H Urine RBC 3-5 H Urine WBC 11-20 H Ur Squamous Epith Cells 0-2 Urine Bacteria None Seen Hyaline Casts 0-2 Assessment and Plan (1) Cerebral infarction: Status: Acute Plan 73-year-old female with a PMH significant for?HTN who is not on any home meds and who does not follow closely wiht PCP who presents to the ED with?left-sided facial droop, slurring words, and right-sided heaviness since . Pt will be admitted to the hospital for treatment and further evaluation of likely subacute CVA. Subacute CVA left-sided facial droop, slurring of words, right-sided leg and arm achiness since CT of head/brain positive for hypodensity in the right basal ganglia suspicious for an infarct A1C 5.0 Carotid ultrasound: carotid duplex BI: 1. RIGHT: Minimal, non-hemodynamically significant stenosis of the proximal right internal carotid artery corresponding to a 0-49% stenosis by velocity criteria. 2. LEFT: Moderate, hemodynamically significant stenosis of the proximal left internal carotid artery corresponding to a 50-79% stenosis by velocity criteria. Echocardiogram pending Lipid profile noted ,Cardiac diet,Monitor on telemetry Neurology consult noted-start on atorvastatin 40mg daily, aspirin 81 mg daily,permissive htn. Alcohol dependence Pt reports drinking around 6 beers daily No reported hx of alcohol withdrawal Labs reveal mild transaminitis CIWA scale HTN Pt with reproted hx of HTN but not on any home meds Pt has been hypertensive up to 155/89 Will hold on initiating any anti-hypertensives for now and will monitor BP Full Code DVT Prophylaxis: Lovenox ongoing hospitalization need : treatment of?likely subacute CVA. Patient required additional imaging/workup, close monitoring, and specialist consultation. Quality Stroke Does the patient have a stroke diagnosis?: Yes Reason for No Anti-thrombotic by Day Two: Contraindicated (Outside of tNK therapeutic window; last known well time 7 days ago) VTE Prior VTE?: No VTE Risk Level:: Medical - moderate - high VTE Device Contraindication: Treatment Not Indicated VTE Drug Contraindication: N/A - Med Ordered
[2023-06-09 15:02] VITALS: BP 210/100; PULSE 82; RESP 20; TEMP 36.4; O2SAT 96
[2023-06-09] MEDS: Enoxaparin Sodium 40 MG/0.4 ML SYRINGE SUBCUT (18:26)
[2023-06-09 19:23] VITALS: BP 202/89; PULSE 72; RESP 20; TEMP 36.6; O2SAT 98
[2023-06-09] MEDS: Atorvastatin Calcium 40 MG TABLET PO (20:04)
[2023-06-09] MEDS: carvediloL 6.25 MG TABLET PO (20:04)
[2023-06-09 22:12] VITALS: BP 160/74
[2023-06-10] VITALS (7 sets, daily range): BP systolic 120–180; BP diastolic 62–84; PULSE 64–88; RESP 17–20; TEMP 36.3–37.1; O2SAT 97–99
[2023-06-10] MEDS: 0.9 % Sodium Chloride Flush 3 ML SYRINGE IVFLUSH ×4 (03:57→20:01)
[2023-06-10] MEDS: Losartan Potassium 25 MG TABLET PO (08:50)
[2023-06-10] MEDS: carvediloL 6.25 MG TABLET PO (08:50)
[2023-06-10] MEDS: Aspirin Enteric Coated 81 MG TABLET.DR PO (08:50)
[2023-06-10] MEDS: hydrALAZINE HCl 20 MG/ML VIAL 10 MG IVPUSH (16:00)
[2023-06-10 16:13] LABS: Glucose, Whole Blood 114 mg/dL (60-115)
--- NOTE | 2023-06-10 16:41 | P.PNIM_ITS ---
Subjective Subjective Date of Service: 06/10/23 Interval History: CVA, uncontrolled hypertension Review of Systems Denies any chest pain or shortness of breath or abdominal pain or fever or chills or cough or phlegm. Physical Exam 2 Vital Signs: Vital Signs: Last Vital Signs Temp 98.8 F 06/10/23 14:57 Pulse 69 06/10/23 14:57 Resp 17 06/10/23 14:57 BP 170/72 H 06/10/23 14:57 Pulse Ox 98 06/10/23 14:57 O2 Del Method Room Air 06/10/23 14:57 BMI result Body Mass Index 32.7 Appearance: Alert.? Oriented X3.? cvs: rrr, [id number] , no murmur res: clear to auscultation ,no rhonchii or wheezing abd: no rebound or guarding ,nt, bs present. ext pulses present , no cyanosis . neuro: axo3 , nonfocal. Objective Data Active Medications Acetaminophen (Acetaminophen 325 Mg Tablet) 650 mg PO Q6H PRN PRN Reason: Pain, Mild (Pain Scale 1-3) Aspirin (Aspirin Enteric Coated 81 Mg Tablet.) 81 mg PO DAILY [facility] Last Admin: 06/10/23 08:50 Dose: 81 mg Documented By: ARA Atorvastatin Calcium (Atorvastatin Calcium 40 Mg Tablet) 40 mg PO BEDTIME [facility] Last Admin: 06/09/23 20:04 Dose: 40 mg Documented By: SANTOSH Benzonatate (Benzonatate 100 Mg Capsule) 100 mg PO TID PRN PRN Reason: Cough Carvedilol (Carvedilol 6.25 Mg Tablet) 6.25 mg PO BID [facility]; Protocol Last Admin: 06/10/23 08:50 Dose: 6.25 mg Documented By: ARA Docusate Sodium (Docusate Sodium 100 Mg Capsule) 100 mg PO DAILY PRN PRN Reason: Constipation Enoxaparin Sodium (Enoxaparin Sodium 40 Mg/0.4 Ml Syringe) 40 mg SUBCUT Q24H [facility] Last Admin: 06/09/23 18:26 Dose: 40 mg Documented By: SANTOSH Hydralazine HCl (Hydralazine Hcl 20 Mg/Ml Vial) 10 mg IVPUSH Q6H PRN; Protocol PRN Reason: hth Last Admin: 06/10/23 16:00 Dose: 10 mg Documented By: SANTOSH Losartan Potassium (Losartan Potassium 25 Mg Tablet) 25 mg PO DAILY [facility]; Protocol Last Admin: 06/10/23 08:50 Dose: 25 mg Documented By: ARA Melatonin (Melatonin 3 Mg Tablet) 6 mg PO BEDTIME PRN PRN Reason: Insomnia Ondansetron HCl (Ondansetron Hcl 4 Mg/2 Ml Vial) 4 mg IVPUSH Q8H PRN PRN Reason: Nausea and Vomiting Sodium Chloride (0.9 % Sodium Chloride Flush 3 Ml Syringe) 3 ml IVFLUSH QSHIFT [place] Last Admin: 06/10/23 16:02 Dose: 3 ml Documented By: SANTOSH Labs 06/08/23 16:01 06/08/23 16:01 Labs: Laboratory Results - last 24 hr 06/10/23 16:02 POC Glucose 114 Microbiology Microbiology Results: Microbiology 06/09/23 Unknown Urine Culture - Preliminary Urine clean catch - Urine san top Culture too young to evaluate. Assessment and Plan (1) Cerebral infarction: Status: Acute Plan 73-year-old female with a PMH significant for?HTN who is not on any home meds and who does not follow closely wiht PCP who presents to the ED with?left-sided facial droop, slurring words, and right-sided heaviness since . Pt will be admitted to the hospital for treatment and further evaluation of likely subacute CVA. Subacute CVA left-sided facial droop, slurring of words, right-sided leg and arm achiness since CT of head/brain positive for hypodensity in the right basal ganglia suspicious for an infarct A1C 5.0 Carotid ultrasound: carotid duplex BI: 1. RIGHT: Minimal, non-hemodynamically significant stenosis of the proximal right internal carotid artery corresponding to a 0-49% stenosis by velocity criteria. 2. LEFT: Moderate, hemodynamically significant stenosis of the proximal left internal carotid artery corresponding to a 50-79% stenosis by velocity criteria. Echocardiogram pending Lipid profile noted ,Cardiac diet,Monitor on telemetry Neurology consult noted-start on atorvastatin 40mg daily, aspirin 81 mg daily,permissive htn. Alcohol dependence Pt reports drinking around 6 beers daily No reported hx of alcohol withdrawal Labs reveal mild transaminitis CIWA scale HTN Pt with reproted hx of HTN but not on any home meds Pt has been hypertensive up to 155/89 Will hold on initiating any anti-hypertensives for now and will monitor BP Full Code DVT Prophylaxis: Lovenox ongoing hospitalization need : treatment of?likely subacute CVA. Patient required additional imaging/workup, close monitoring, and specialist consultation. Quality Stroke Does the patient have a stroke diagnosis?: Yes Reason for No Anti-thrombotic by Day Two: Contraindicated (Outside of tNK therapeutic window; last known well time 7 days ago) VTE Prior VTE?: No VTE Risk Level:: Medical - moderate - high VTE Device Contraindication: Treatment Not Indicated VTE Drug Contraindication: N/A - Med Ordered
[2023-06-10] MEDS: Enoxaparin Sodium 40 MG/0.4 ML SYRINGE SUBCUT (18:24)
[2023-06-10] MEDS: Atorvastatin Calcium 40 MG TABLET PO (19:58)
[2023-06-10] MEDS: carvediloL 12.5 MG TABLET PO (19:58)
[2023-06-11 03:17] VITALS: BP 135/63; PULSE 68; RESP 18; TEMP 36; O2SAT 98
[2023-06-11 07:09] VITALS: BP 169/74; PULSE 68; RESP 18; TEMP 36.8; O2SAT 96
[2023-06-11] MEDS: Aspirin Enteric Coated 81 MG TABLET.DR PO (07:55)
[2023-06-11] MEDS: 0.9 % Sodium Chloride Flush 3 ML SYRINGE IVFLUSH (07:55)
[2023-06-11] MEDS: carvediloL 12.5 MG TABLET PO (07:55)
[2023-06-11] MEDS: Losartan Potassium 25 MG TABLET PO (07:55)
[2023-06-11] MEDS: Acetaminophen 325 MG TABLET 650 MG PO (07:57)
[2023-06-11 10:56] VITALS: BP 147/67; PULSE 86; RESP 18; TEMP 36.4; O2SAT 97
--- NOTE | 2023-06-11 11:09 | P.DS_ITS ---
DS: Providers Provider Date of Service: 06/11/23 Date of admission: 06/08/23 18:59 Date of discharge: 06/11/23 Primary care physician: Unknown Physician Consults: 06/08/23 19:09 Consult to Neurology Routine Consulting Provider: [facility] Reason for consultation: Likely stroke on Attending physician on discharge: Yaneli Salinas Discharging clinician: Yaneli Salinas DS: Diagnosis Discharge Diagnosis (1) Cerebral infarction: Status: Acute DS: Summary Hospital Course Hospital Course: 73-year-old female with a PMH significant for?HTN who is not on any home meds and who does not follow closely wiht PCP who presents to the ED with?left-sided facial droop, slurring words, and right-sided heaviness since . Last known well time was the night of 06/01 when pt says she went to bed in her normal state of health. Pt awoke on morning with a heaviness and achiness in right arm and leg, and also that her right hand was clenched. Patient was eventually able to move her hand freely with no noticeable deficit. 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 Did not note any slurring of words at that time. Neither patient or family apparently thought much about her condition and did not consider coming to the ED for evaluation. Patient went to bed that evening but will get 02:00 on Tuesday morning again with a heaviness/achiness in her right arm and leg. Patient also states she became incontinent of urine on , Tuesday, Tuesday, though has been continent since Tuesday. Patient denies any headache or acute vision changes. However patient and her family noticed she began slurring her words yesterday. Today when family visited they noticed the left-sided facial droop had worsened and patient was drooling from the left side of her mouth, which prompted visit to the ED. no reported family history of stroke. Patient states her only known medical condition is high blood pressure, the patient has not seen a PCP since some time before the pandemic. Patient denies chest pain/pressure, palpitations. No shortness of breath or difficulty breathing. No lightheadedness or dizziness. Currently denies any numbness, tingling, weakness, paralysis on her left side. In the ED pt was afebrile, with pulse of 91, respiratory rate 18, slightly hypertensive 155/89, satting 97% on RA. Labs were significant for chronic mild transaminitis with AST 45, ALT 30, otherwise grossly unremarkable. No leukocytosis. Stable H&H. Electrolytes WNL. Renal function WNL. CT of head/brain found hypodensity in the right basal ganglia extending into the anterior limb of the right internal capsule, suspicious for an infract. Recommend MRI. EKG demonstrated normal sinus with nonspecific T-wave inversions in aVR and V1. Pt will be admitted to the hospital for treatment and further julio luation of likely subacute CVA. Hospital course: Patient was admitted for new CVA symptoms: Says patient was started on a aspirin, statin, added Coreg for blood pressure control, Neurology consulted Patient had CT head and MRI done: Found to have Acute right basal ganglia infarct. Workup with carotid duplex and echo was also done: EF seems fine, carotid duplex shows :LEFT: Moderate, hemodynamically significant stenosis of the proximal left internal carotid artery corresponding to a 50-79% stenosis . Patient blood pressure seems to be improving significantly with Coreg and losartan for blood pressure control. PT saw the patient-recommended home PT . plan: continue Coreg and losartan ,moniter blood pressure control. Assessment plan coordination time spent 50 minute. Time Attestation Discharge coordination time: Greater than 30 minutes Quality: Safe Use of Opioids Does Pt have an Active Cancer Diagnosis on the Problem List?: No Quality: Stroke Does the patient have a stroke diagnosis?: No Physical Exam Vital Signs: Vital Signs: Last Vital Signs Temp 97.6 F 06/11/23 10:56 Pulse 86 06/11/23 10:56 Resp 18 06/11/23 10:56 BP 147/67 H 06/11/23 10:56 Pulse Ox 97 06/11/23 10:56 O2 Del Method Room Air 06/11/23 10:56 O2 Flow Rate 98 06/10/23 19:08 BMI result Body Mass Index 32.7 Appearance: Alert.? Oriented X3.? cvs: rrr, [id number] , no murmur res: clear to auscultation ,no rhonchii or wheezing abd: no rebound or guarding ,nt, bs present. ext pulses present , no cyanosis . neuro: axo3 , nonfocal,has Left-sided facial droop. DS: Data Data Completed and Pending Labs on day of discharge: Laboratory Results - last 24 hr 06/10/23 16:02 POC Glucose 114 Preliminary micro results at discharge 06/09/23 Unknown Urine Culture - Preliminary Urine clean catch - Urine san top Culture too young to evaluate. Imaging Chest x-ray: Radiologist's impression: ITS Impressions Head CT 06/08/23 15:34 IMPRESSION: Hypodensity in the right basal ganglia extending into the anterior limb of the right internal capsule, suspicious for an infarct. MR brain examination would be recommended. No appreciable bleed or mass effect. Mild atrophy. Eccentric sinusitis. Discussed by telephone with Lotus Restrepo in the ER at 4:32 PM. Carotid Doppler Study 06/08/23 20:01 IMPRESSION: 1. RIGHT: Minimal, non-hemodynamically significant stenosis of the proximal right internal carotid artery corresponding to a 0-49% stenosis by velocity criteria. 2. LEFT: Moderate, hemodynamically significant stenosis of the proximal left internal carotid artery corresponding to a 50-79% stenosis by velocity criteria. Brain MRI 06/09/23 10:18 IMPRESSION: 1. Acute right basal ganglia infarct. No hemorrhagic conversion. 2. Trace subarachnoid hemorrhage in the right frontal sulci. Discharge Plan Discharge Anticipated Discharge Date/Time: 06/11/23 11:00 Patient Disposition: Home, Self-Care Discharge Diagnosis: cva ,htn ucnontrolled. Referrals: Physician,Unknown J [Primary Care Provider] - 1 Week Discharge Medications: New atorvastatin 40 mg Tablet 40 mg PO BEDTIME Qty: 30 0RF losartan 25 mg Tablet 25 mg PO DAILY Qty: 30 0RF Protocol: Hold for SBP< HOLD for SBP < : 90 carvedilol 12.5 mg Tablet 12.5 mg PO BID Qty: 30 0RF Protocol: Hold for SBP/HR < HOLD for SBP < : 90 HOLD for HR < : 60 aspirin 81 mg Tablet,Delayed Release (Dr/Ec) 81 mg PO DAILY Qty: 30 0RF benzonatate 100 mg Capsule 100 mg PO TID PRN (Reason: Cough) Qty: 10 0RF No Action No Known Home Meds Discharge Orders: Discharge Order (Routine); Ordered 06/11/23 Ordered By: Yaneli Salinas Diet: Advance to usual diet Activity on Discharge: As tolerated Stand Alone Forms: Patient Portal Discharge page Care Plan Goals: Patient was admitted for new CVA symptoms: Says patient was started on a aspirin, statin, added Coreg for blood pressure control, Neurology consulted Patient had CT head and MRI done: Found to have Acute right basal ganglia infarct. Workup with carotid duplex and echo was also done: EF seems fine, carotid duplex shows :LEFT: Moderate, hemodynamically significant stenosis of the proximal left internal carotid artery corresponding to a 50-79% stenosis . Patient blood pressure seems to be improving significantly with Coreg and losartan for blood pressure control. PT saw the patient-recommended home PT . Health Concerns: As above. Plan of Treatment: As above. Assessment: As above. Patient Instructions: Ischemic Stroke (DC)
--- NOTE | 2023-06-11 11:10 | MHC.CM.PN ---
Patient has been medically cleared for dc to home today, self care.
--- NOTE | 2023-06-11 11:15 | W.MHC.F2F ---
Service Date Service Date: 06/11/23 Encounter Date of encounter: 06/11/23 Encounter: cva,uncontrolled htn Reasons for Services Signs and symptoms assessed: numbness ,weakness Reason for physical therapy: home safety and mobility, therapeutic exercises, restore joint function, gait/transfer training, assess need for DME, ADL training, energy conservation and other Homebound: Leaving the home is medically contraindicated at this time without the asist of a device and/or another person due th the listed conditions above and below. Reason homebound: weakness related to hospital stay Certification: Based on the above findings, I certify that this patient is confined to the home and needs intermittent half-way care, physical therapy and/or speech therapy, or continues to need occupational therapy. The patient is under my care, and I have initiated the establishment of the plan of care. The patient will be followed by a physician who will periodically review the plan of care. Time Spent With Patient Time: Total time managing care of this patient today ____ minutes.
== END 2023-06-11 15:02 | disposition home or self-care (01) | DRG 66 ==
LOC: HO.ED 17:00 → HO.EDOVER 19:19 → HO.IMC 22:07
PROVIDERS: Physician Assistant; Physician Assistant Medical; Admitting Provider Student in an Organized Health Care Education/Training Program; Emergency Provider Emergency Medicine; Visit Provider Internal Medicine
DX: I63.30 Cerebral infarction due to thrombosis of unspecified cerebral artery (principal); I65.22 Occlusion and stenosis of left carotid artery; R29.810 Facial weakness; R29.702 NIHSS score 2; I10 Essential (primary) hypertension; F17.210 Nicotine dependence, cigarettes, uncomplicated; Z71.6 Tobacco abuse counseling
CPT/HCPCS: 36415; 70450; 70551; 80048; 80061; 80076; 81001; 82947; 83036; 83735; 85025; 85610; 85730; 87086; 93005; 93306; 93880; 97161; 97165; 99285; J0360; J1650; Q9957

== ENCOUNTER 2023-06-08 18:59 | Outpatient (BNV) | payer MEDICARE, SELFPAY | END 2023-06-09 07:00 | PROVIDERS: Admitting Provider Student in an Organized Health Care Education/Training Program; Emergency Provider Emergency Medicine; Visit Provider Internal Medicine Cardiovascular Disease | DX: I34.0 Nonrheumatic mitral (valve) insufficiency (principal); I34.81 Nonrheumatic mitral (valve) annulus calcification | CPT/HCPCS: 93306 ==

== ENCOUNTER → 2023-06-08 18:59 | Outpatient (BNV) | payer MEDICARE, SELFPAY | PROVIDERS: Admitting Provider Student in an Organized Health Care Education/Training Program; Emergency Provider Emergency Medicine; Visit Provider Student in an Organized Health Care Education/Training Program | DX: I69.398 Other sequelae of cerebral infarction (principal); I65.23 Occlusion and stenosis of bilateral carotid arteries | CPT/HCPCS: 99222; 99231; 99232; 99239 ==

== ENCOUNTER 2024-01-27 10:28 | Emergency (ER) | payer MEDICARE, SELFPAY ==
--- NOTE | ~2024-01-27 | XR_ITS ---
EXAMINATION: XR SHOULDER, LEFT CLINICAL INFORMATION: Pain COMPARISON: None available. TECHNIQUE: AP external rotation, Grashey, scapular Y, and axillary views of the left shoulder. A preliminary report was issued on 01/27/2024 FINDINGS: There is moderate acromioclavicular osteoarthritis. Glenohumeral joint is well preserved. No fracture. Alignment is anatomic. Soft tissues are normal with no abnormal calcifications. XR/XR shoulder LT min 2V IMPRESSION: Moderate acromioclavicular joint arthritis. Electronically signed by: Xin Saleh MD 03/18/2024 07:39 AM EDT
[2024-01-27 10:30] VITALS: BP 166/79; PULSE 101; RESP 19; TEMP 36.6; O2SAT 99; BMI 29.4
--- NOTE | 2024-01-27 11:06 | ED_ITS ---
HPI - Extremity Problem General Chief complaint: Extremity Injury, Upper Stated complaint: R Shoulder Pain S/P Fall 01/25/24 Time Seen by Provider: 01/27/24 10:45 Source: patient and family Mode of arrival: ambulatory History of Present Illness ED Provider: Dr Chacon HPI Narrative: 73-year-old female, denies use of chronic anticoagulation, denies head strike or loss of consciousness when she slipped in the bathtub and landed on her left shoulder and left lower extremity. Patient tried some Advil on Tuesday when the event happened but states she still has some shoulder discomfort. She otherwise denies any chest pain/shortness of breath or abdominal discomfort. Related Data Previous Rx's ?Medication ?Instructions ?Recorded aspirin 81 mg tablet,delayed 81 mg PO DAILY #30 tabs 06/11/23 release atorvastatin 40 mg tablet 40 mg PO BEDTIME #30 tabs 06/11/23 benzonatate 100 mg capsule 100 mg PO TID PRN Cough #10 caps 06/11/23 carvedilol 12.5 mg tablet 12.5 mg PO BID #30 tabs 06/11/23 losartan 25 mg tablet 25 mg PO DAILY #30 tabs 06/11/23 Allergies Allergy/AdvReac Type Severity Reaction Status Date / Time No Known Allergies Allergy Verified 01/27/24 10:33 [No Known Allergies*] Review of Systems Review of Systems: Pertinent positives and negatives as stated in HPI [facility] Past Medical History Source: nursing notes reviewed Medical History HTN (hypertension) Social History Social History Household Members: None Housing: Apartment Do you presently have visiting nurse or other home services: Yes ( a nurse once a year around october ) Alcohol intake: current Alcohol intake frequency: 0-2 drinks per day Alcohol type: beer Comment: pt's daughter present at bedside, aware of bed alarm and high falls measure Patient Tobacco Use Status: Current someday Tobacco user Tobacco use type: Cigarette e-Cigarette/Vaping Use: Never Used Substance Use Type: Marijuana Advance Directives: No Advance Directives Information Provided: No service: No Physical Exam Vital Signs: Vital Signs: Last Vital Signs Temp 98 F 01/27/24 10:30 Pulse 101 H 01/27/24 10:30 Resp 19 01/27/24 10:30 BP 166/79 H 01/27/24 10:30 Pulse Ox 99 01/27/24 10:30 O2 Del Method Room Air 01/27/24 10:30 BMI result Body Mass Index 29.4 VITAL SIGNS: Reviewed. GENERAL: Well developed, well nourished, in no acute distress. HEAD: Normocephalic/atraumatic EYES: PERRLA, EOMI EARS: Ext canals without abnormality NOSE: Nares patent bilateral OROPHARYNX: no oral lesions noted, posterior pharynx clear NECK: Supple, no adenopathy LUNGS: Normal breath sounds. No adventitious sounds or accessory muscle use. SpO2<99> CARDIOVASCULAR: Regular rate and rhythm without noted murmurs, no JVD or lower extremity edema. ABDOMEN: Soft, non-tender, non-distended with bowel sounds. MUSCULOSKELETAL: No tenderness, deformities, or effusions noted on gross inspection. LLE: Mild ecchymosis to proximal lateral left lower extremity LEFT SHOULDER: No pain over AC, full range of motion appreciated with minimal discomfort, there is pain over bicipital groove and over the posterior aspect of the shoulder, no clicking noted EXTREMITIES: No cyanosis, clubbing or edema. SKIN: Inspection of the skin reveals no rashes NEUROLOGIC: Alert and oriented x 4. Strength and sensation to light touch were grossly intact x 4. Medications Administered Discontinued Medications Generic Name Dose Route Start Last Admin Trade Name Freq PRN Reason Stop Dose Admin Acetaminophen 975 mg 01/27/24 10:58 01/27/24 11:20 Acetaminophen 325 Mg Tablet PO 01/27/24 10:59 975 mg ONCE ONE Administration Ibuprofen 400 mg 01/27/24 10:58 01/27/24 11:21 Ibuprofen 400 Mg Tablet PO 01/27/24 10:59 400 mg ONCE ONE Administration Medical Decision Making Medical Decision Making MDM Narrative: 73-year-old female with left shoulder injury and pain on palpation but still able to fully range of motion, will proceed with x-ray of left shoulder although patient and daughter both understand that this will only identify features such as dislocations and fractures but will facilitate a referral for physical therapy if needed. Patient also received combination analgesics. There is still no x-ray official read and on my interpretation I do not apprecia te any acute fractures or dislocations, patient is otherwise discharged for outpatient follow-up and likely physical therapy Differential Diagnosis Differential Diagnoses: The differential diagnosis associated with the presentation includes Please see the discussion above Admission/Observation Consideration of admission/observation: Escalation of care including admission/observation considered Please see the discussion Radiology Impression Discussion of test interpretation with radiology: I have reviewed the radiologist's reading. Radiologist Impression: Please see the discussion Critical Care Time Critical Care Time Critical Care Time: Yes Total Critical Care Time: 30 Attestation: I personally attest to this time spent taking care of the patient. Discharge Plan Discharge Clinical Impression: Left shoulder pain Patient Disposition: Home, Self-Care Instructions: Shoulder Pain (ED) Additional Instructions: 1. Recommend continued use of Tylenol ibuprofen. 2. Follow-up with your primary care doctor and discuss possible referral for physical therapy. Prescriptions: No Action atorvastatin 40 mg Tablet 40 mg PO BEDTIME Qty: 30 0RF carvedilol 12.5 mg Tablet 12.5 mg PO BID Qty: 30 0RF Protocol: Hold for SBP/HR < HOLD for SBP < : 90 HOLD for HR < : 60 aspirin 81 mg Tablet,Delayed Release (Dr/Ec) 81 mg PO DAILY Qty: 30 0RF benzonatate 100 mg Capsule 100 mg PO TID PRN (Reason: Cough) Qty: 10 0RF losartan 25 mg Tablet 25 mg PO DAILY Qty: 30 0RF Protocol: Hold for SBP< HOLD for SBP < : 90 Print Language: Uzbek
[2024-01-27] MEDS: Acetaminophen 325 MG TABLET 975 MG PO (11:20)
[2024-01-27] MEDS: Ibuprofen 400 MG TABLET PO (11:21)
[2024-01-27 13:03] VITALS: BP 166/79; PULSE 101; RESP 19; TEMP 36.6; O2SAT 99
== END 2024-01-27 13:04 | disposition home or self-care (01) ==
PROVIDERS: Emergency Provider Student in an Organized Health Care Education/Training Program
DX: M25.512 Pain in left shoulder (principal); Z91.81 History of falling; F17.210 Nicotine dependence, cigarettes, uncomplicated
CPT/HCPCS: 73030; 99283